=== PATIENT | female | born 1970 | race Two or more races ===

== ENCOUNTER 2023-03-10 17:51 | Emergency (ER) | payer OTHER ==
[~2023-03-10] VITALS: Ht 160 cm; Wt 92.1 kg
[2023-03-10] MEDS ORDERED: SYNTHROID125 MCG PO (18:27)
[2023-03-10] MEDS ORDERED: CRESTOR20 MG PO (18:28)
== END 2023-03-10 23:33 | disposition home or self-care (01) ==
LOC: ER 17:51
PROVIDERS: General Practice
DX: U07.1 COVID-19 (principal)